=== PATIENT | male | born 1965 | race Caucasian/White ===

== ENCOUNTER 2018-12-24 13:27 | Observation (INO) ==
--- NOTE | 2018-12-24 13:32 | Emergency Department Note ---
Disposition Clinical Impression: Chest pain Qualifiers: Chest pain type: unspecified Qualified Code(s): R07.9 - Chest pain, unspecified Disposition: Admitted As Inpatient Time of Disposition: 16:00 General Adult HPI - General Stated complaint: Chest Pain Time Seen by Provider: 12/24/18 13:31 Nursing Notes Reviewed: Yes Vital Signs Reviewed: Yes - History of Present Illness HPI Narrative: 53-year-old male presented to emergency department concern for intermittent chest palpitations and tightness over the last 2 days. Patient denies any history of coronary artery disease, but does admit to having hypertension, being a smoker. Patient states that he has never felt this way before. He has had a clean stress test about 3 years ago. - Related Data Home Medications Medication Instructions Recorded Confirmed Amlodipine Besylate/Benazepril 1 each PO DAILY 11/10/18 11/10/18 [Lotrel 10-40 mg Capsule] Cyclobenzaprine HCl 10 mg PO DAILY PRN 11/10/18 11/10/18 Gabapentin [Neurontin] 400 mg PO Q8HR 11/10/18 11/10/18 Metoprolol Tartrate [Lopressor] 50 mg PO DAILY 11/10/18 11/10/18 Sulindac 200 mg PO BID PRN 11/10/18 11/10/18 glipiZIDE [Glipizide] 10 mg PO DAILY 11/10/18 11/10/18 Allergies Allergy/AdvReac Type Severity Reaction Status Date / Time No Known Allergies Allergy Verified 02/06/18 11:32 All systems ED: reviewed and negative except as stated. Review of Systems: As Per HPI Constitutional: Denies: fever Cardiovascular: Reports: chest pain, palpitations Respiratory: Denies: cough, dyspnea, sputum production Gastrointestinal: Denies: abdominal pain, nausea, vomiting Genitourinary: Denies: dysuria Musculoskeletal: Denies: back pain Past Medical History - Past Medical History Attestation: Yes The following information was validated with the patient. Medical history: Reports: hypertension, other Surgical history: Reports: cholecystectomy, orthopedic, other Psychiatric history: Reports: anxiety - Social History Smoking Status: Current every day smoker Smokeless Tobacco Status: No Alcohol use: Reports: occasionally Drug use: Reports: none Physical Exam - General Limitations: no limitations General appearance: alert, in no apparent distress - Head Head exam: normocephalic - Eye Eye exam: Present: EOMI - ENT ENT exam: mucous membranes moist - Neck Neck exam: Present: trachea midline - Chest Chest inspection: Present: symmetric chest wall rise - Respiratory Respiratory exam: Present: normal lung sounds bilaterally. Absent: respiratory distress, wheezes, accessory muscle use - Cardiovascular Cardiovascular exam: Present: regular rate, normal rhythm, normal heart sounds - Abdominal Exam Abdominal exam: Present: soft, Non-Tender. Absent: distention, guarding, rebound, rigidity - Extremities Exam Extremities exam: Present: normal capillary refill - Neurological Exam Neurological exam: Present: alert, oriented X3 - Psychiatric Psychiatric exam: Present: normal affect, normal mood - Skin Skin exam: Present: warm, dry, intact, normal color. Absent: rash Course Vital Signs Temperature 98.5 F 12/24/18 13:37 Pulse Rate 96 12/24/18 13:37 Respiratory Rate 20 12/24/18 13:37 Blood Pressure 147/86 12/24/18 13:37 O2 Sat by Pulse Oximetry 97 12/24/18 13:37 Temperature 98.5 F 12/24/18 13:37 Pulse Rate 103 12/24/18 14:55 Respiratory Rate 18 12/24/18 14:55 Blood Pressure 129/82 12/24/18 14:55 O2 Sat by Pulse Oximetry 93 12/24/18 14:55 Oxygen Delivery Oxygen Delivery Room Air Medical Decision Making - [facility] Narrative Medical decision making narrative: Did 53-year-old male presents emergency department with concern for intermittent chest comfortably last couple days. EKG reveals mild ST depressions in the inferior leads that were nonspecific. Patient has new cardiomegaly on chest x- ray. Heart score 4. Given nitroglycerin and aspirin here in the emergency department. Heart score of 4, patient agreed for admission. Hemodynamically stable at that time. Chest X-Ray 12/24/18 13:31 IMPRESSION: No acute findings D/ / Bethany Harris MD / Bethany Harris MD Interpreting Provider: Bethany Harris MD - Lab Data Result diagrams: 12/24/18 14:00 12/24/18 14:00 Lab Results 12/24/18 12/24/18 12/24/18 Range/Units 14:00 14:00 14:00 WBC 8.4 (4.3-11.1) K/mcL RBC 5.07 (4.19-5.50) M/mcL Hgb 16.2 (12.9-16.9) g/dL Hct 46.2 (37.5-50.1) % MCV 91.1 (83.0-100.0) fL MCH 32.0 (28.0-33.3) pg MCHC 35.1 (31.6-35.5) g/dL RDW 12.2 (11.5-14.5) % Plt Count 219 (140-400) K/mcL MPV 9.7 (9.4-12.4) fL Immature Gran % 1.0 (0-4) % Seg Neutrophils % 47.4 % Lymphocytes % 35.4 % Monocytes % 12.5 % Eosinophils % 2.7 % Basophils % 1.0 % Neutrophils # 4.0 (1.6-8.9) K/mcL Lymphocytes # 3.0 (0.6-4.6) K/mcL Monocytes # 1.1 (0.0-1.3) K/mcL Eosinophils # 0.2 (0.0-0.6) K/mcL Basophils # 0.1 (0.0-0.2) K/mcL Sodium 140 (136-145) mEq/L Potassium 4.1 (3.5-5.1) mEq/L Chloride 106 (98-107) mEq/L Carbon Dioxide 25 (23-29) mEq/L BUN 16 (6-20) mg/dL Creatinine 1.14 (0.70-1.30) mg/dL Est GFR ( Amer) > 60 (> 60) Est GFR (Non-Af Amer) > 60 (> 60) BUN/Creatinine Ratio 14 (6-26) Glucose 153 H (70-105) mg/dL Calculated Osmolality 294 (280-300) Calcium 9.0 (8.6-10.3) mg/dL Troponin I < 0.03 (< 0.04) ng/mL B-Natriuretic Peptide 26 (Less than 100) pg/mL - Radiology Data Radiology results reviewed: Yes I reviewed the patient's radiology results. - EKG Data EKG #1 EKG attestation: Yes I reviewed and interpreted this EKG. EKG results narrative: 13:39 Heart rate 96 bpm, SC interval 130 muscles, QRS duration 92 ms, QT 354 months seconds, normal axis. Sinus rhythm mild ST depressions noted on inferior leads Heart Score - Score History: Slightly Suspicious EKG: Non Specific repolarisation Disturbance Age: 45-65 Risk Factors: Equal/Greater than 3 risk factor or history of atherosclerotic disease Troponin: Less than normal limit HEART Score Total: 4
[2018-12-24] MEDS ORDERED: Aspirin 81 MG TAB.CHEW PO STA (13:53)
[2018-12-24 14:16] LABS: Basophils # 0.1 K/mcL (0.0-0.2); Eosinophils # 0.2 K/mcL (0.0-0.6); Eosinophils % 2.7 %; Hematocrit 46.2 % (37.5-50.1); Hemoglobin 16.2 g/dL (12.9-16.9); Lymphocytes % 35.4 %; Mean Corpuscular HGB Conc 35.1 g/dL (31.6-35.5); Mean Corpuscular Volume 91.1 fL (83.0-100.0); Mean Platelet Volume 9.7 fL (9.4-12.4); Monocytes # 1.1 K/mcL (0.0-1.3); Monocytes % 12.5 %; Platelet Count 219 K/mcL (140-400); Red Blood Count 5.07 M/mcL (4.19-5.50); Red Cell Distribution Width 12.2 % (11.5-14.5); Segmented Neutrophils % 47.4 %; White Blood Count 8.4 K/mcL (4.3-11.1)
[2018-12-24 14:36] LABS: BUN/Creatinine Ratio 14 (6-26); Blood Urea Nitrogen 16 mg/dL (6-20); Carbon Dioxide 25 mEq/L (23-29); Chloride 106 mEq/L (98-107); Glucose 153 mg/dL (70-105); Osmolality,Calculated 294 (280-300); Potassium 4.1 mEq/L (3.5-5.1); Sodium 140 mEq/L (136-145); eGFR For African Americans > 60 (> 60); eGFR For Non-African Americans > 60 (> 60)
[2018-12-24 14:37] LABS: Troponin I < 0.03 ng/mL (< 0.04)
[2018-12-24] MEDS: Nitroglycerin 0.4 MG TAB.SUBL SL PRN ×2 (14:47→14:54)
[2018-12-24] MEDS ORDERED: Aspirin 81 MG TAB.CHEW ONE (14:51)
--- NOTE | 2018-12-24 15:12 | Emergency Department Note ---
Disposition Clinical Impression: Chest pain Qualifiers: Chest pain type: unspecified Qualified Code(s): R07.9 - Chest pain, unspecified Disposition: Admitted As Inpatient Referrals: NONE,PCP [Primary Care Provider] - Forms: ED Satisfaction Letter Time of Disposition: 15:12 General Adult HPI - General Chief complaint: ED Chest Pain Stated complaint: Chest Pain Time Seen by Provider: 12/24/18 13:31 Source: patient Limitations: no limitations - History of Present Illness Pain Scale: 7 - Related Data Home Medications Medication Instructions Recorded Confirmed Amlodipine Besylate/Benazepril 1 each PO DAILY 11/10/18 11/10/18 [Lotrel 10-40 mg Capsule] Cyclobenzaprine HCl 10 mg PO DAILY PRN 11/10/18 11/10/18 Gabapentin [Neurontin] 400 mg PO Q8HR 11/10/18 11/10/18 Metoprolol Tartrate [Lopressor] 50 mg PO DAILY 11/10/18 11/10/18 Sulindac 200 mg PO BID PRN 11/10/18 11/10/18 glipiZIDE [Glipizide] 10 mg PO DAILY 11/10/18 11/10/18 Allergies Allergy/AdvReac Type Severity Reaction Status Date / Time No Known Allergies Allergy Verified 02/06/18 11:32 Constitutional: Denies: fever Cardiovascular: Reports: chest pain, palpitations Respiratory: Denies: cough, dyspnea, sputum production Gastrointestinal: Denies: abdominal pain, nausea, vomiting Genitourinary: Denies: dysuria Musculoskeletal: Denies: back pain Past Medical History - Past Medical History Medical history: Reports: diabetes, hypertension, other Surgical history: Reports: cholecystectomy, orthopedic, other Psychiatric history: Reports: anxiety, depression, PTSD - Social History Smoking Status: Former smoker Smokeless Tobacco Status: No Alcohol use: Reports: occasionally Drug use: Reports: none Physical Exam - General Limitations: no limitations General appearance: alert, in no apparent distress Course Vital Signs Temperature 98.5 F 12/24/18 13:37 Pulse Rate 96 12/24/18 13:37 Respiratory Rate 20 12/24/18 13:37 Blood Pressure 147/86 12/24/18 13:37 O2 Sat by Pulse Oximetry 97 12/24/18 13:37 Temperature 98.5 F 12/24/18 13:37 Pulse Rate 103 07/28/19 14:55 Respiratory Rate 18 12/24/18 14:55 Blood Pressure 129/82 12/24/18 14:55 O2 Sat by Pulse Oximetry 93 12/24/18 14:55 Oxygen Delivery Oxygen Delivery Room Air Medical Decision Making - Lab Data Result diagrams: 12/24/18 14:00 12/24/18 14:00 Lab Results 12/24/18 12/24/18 12/24/18 Range/Units 14:00 14:00 14:00 WBC 8.4 (4.3-11.1) K/mcL RBC 5.07 (4.19-5.50) M/mcL Hgb 16.2 (12.9-16.9) g/dL Hct 46.2 (37.5-50.1) % MCV 91.1 (83.0-100.0) fL MCH 32.0 (28.0-33.3) pg MCHC 35.1 (31.6-35.5) g/dL RDW 12.2 (11.5-14.5) % Plt Count 219 (140-400) K/mcL MPV 9.7 (9.4-12.4) fL Immature Gran % 1.0 (0-4) % Seg Neutrophils % 47.4 % Lymphocytes % 35.4 % Monocytes % 12.5 % Eosinophils % 2.7 % Basophils % 1.0 % Neutrophils # 4.0 (1.6-8.9) K/mcL Lymphocytes # 3.0 (0.6-4.6) K/mcL Monocytes # 1.1 (0.0-1.3) K/mcL Eosinophils # 0.2 (0.0-0.6) K/mcL Basophils # 0.1 (0.0-0.2) K/mcL Sodium 140 (136-145) mEq/L Potassium 4.1 (3.5-5.1) mEq/L Chloride 106 (98-107) mEq/L Carbon Dioxide 25 (23-29) mEq/L BUN 16 (6-20) mg/dL Creatinine 1.14 (0.70-1.30) mg/dL Est GFR ( Amer) > 60 (> 60) Est GFR (Non-Af Amer) > 60 (> 60) BUN/Creatinine Ratio 14 (6-26) Glucose 153 H (70-105) mg/dL Calculated Osmolality 294 (280-300) Calcium 9.0 (8.6-10.3) mg/dL Troponin I < 0.03 (< 0.04) ng/mL B-Natriuretic Peptide 26 (Less than 100) pg/mL Attestation Statement - Attestation Attestation: I reviewed the residents documentation and agree with the residents assessment and plan of care. I have personally had face to face time with the patient. (Brief History, Brief Exam, and MDM) I personally supervised and was present for the seymour/critical portions of the following procedures completed by the resident: EKG 53 year old male presents to the ED with complaints of chest pain and has a heart score of 4. PAtinet has a negstive troponin and mild nonspcific ST-T wave flattening. We will treat with ASA and nitro and admit to medicine.
[2018-12-24] MEDS ORDERED: traMADol 50 MG TABLET PO PRN (17:24)
[2018-12-24] MEDS ORDERED: Mag Hydrox/Al Hydrox/Simeth 30 ML UDC PO PRN (17:24)
[2018-12-24] MEDS ORDERED: *HR* Promethazine 25 MG/ML VIAL IVP PRN (17:24)
[2018-12-24] MEDS ORDERED: Acetaminophen 325 MG TABLET PO PRN (17:24)
[2018-12-24] MEDS ORDERED: MOM Conc 10 ML UD.LIQ PO PRN (17:24)
[2018-12-24] MEDS ORDERED: Naloxone 0.4 MG/ML INJ IVP PRN (17:24)
[2018-12-24] MEDS ORDERED: Ondansetron 4 MG/2 ML VIAL IVP PRN (17:24)
[2018-12-24] MEDS ORDERED: Dextrose Gel 15 GM/37.5 ML TUBE PO PRN ×2 (17:26)
[2018-12-24] MEDS ORDERED: D5% in Water 1,000 ML IVC PRN (17:26)
[2018-12-24] MEDS ORDERED: *HR* Dextrose 50 % in Water (Syg) 50 ML SYRINGE IVP PRN (17:26)
--- NOTE | 2018-12-24 17:30 | Internal Med History&Physical ---
Date of Encounter: 12/24/18 Time of Encounter: 17:28 Internal Medicine - H&P: HPI Admitted From: Home Plans for Post Hospital Care: Home History of present illness: Mr. Hart is a 53 year old male presented to emergency department concern for intermittent chest palpitations and tightness over the last 2 days. Patient denies any history of coronary artery disease, but does admit to having hypertension, being a smoker. Patient states that he has never felt this way before. He has had a clean stress test about 3 years ago. In the ED, patient vital signs were stable, first set of troponin was negative, EKG has no acute ST-T change. He will be admitted for further evaluation. CODE STATUS will be full code. Past Med Surg Social Fam HX - Past Medical History Medical history: diabetes, hypertension, other Additional medical history: neoplasm of uncertain behavior. obstructive sleep apnea. dyslipidemia. chronic neck pain. chronic back pain. post-laminectomy syndrome, lumbar. pre-diabetic Psychiatric history: anxiety, depression, PTSD - Past Surgical History Surgical History: cholecystectomy, orthopedic, other Additional surgical history: thoracic and lumbar microdiscectomy. neck surgery cervical disectomy - Social History Smoking Status: Former smoker Smokeless Tobacco Status: No Alcohol use: occasionally Drug use: none Internal Medicine - H&P: Meds Amlodipine Besylate/Benazepril [Lotrel 10-40 mg Capsule] 1 each PO DAILY 11/10/18 [History] Cyclobenzaprine HCl 10 mg PO DAILY PRN 11/10/18 [History] Gabapentin [Neurontin] 400 mg PO Q8HR 11/10/18 [History] Metoprolol Tartrate [Lopressor] 50 mg PO DAILY 11/10/18 [History] Sulindac 200 mg PO BID PRN 11/10/18 [History] glipiZIDE [Glipizide] 10 mg PO DAILY 11/10/18 [History] Allergy/AdvReac Type Severity Reaction Status Date / Time No Known Allergies Allergy Verified 02/06/18 11:32 All Systems PM: A 10-system review of systems was performed and is negative for pertinent findings except as documented above in the HPI. Review of systems: REVIEW OF SYSTEMS: CONSTITUTIONAL: No weight loss, fever, chills, weakness or fatigue. HEENT: Eyes: No visual loss, blurred vision, double vision or yellow sclerae. Ears, Nose, Throat: No hearing loss, sneezing, congestion, runny nose or sore throat. SKIN: No rash or itching. CARDIOVASCULAR: No chest pain, chest pressure or chest discomfort. No palpitations or edema. RESPIRATORY: No shortness of breath, cough or sputum. GASTROINTESTINAL: No anorexia, nausea, vomiting or diarrhea. No abdominal pain or blood. GENITOURINARY: No dysuria, urgency, or frequency. NEUROLOGICAL: No headache, dizziness, syncope, paralysis, ataxia, numbness or tingling in the extremities. No change in bowel or bladder control. MUSCULOSKELETAL: No muscle, back pain, joint pain or stiffness. HEMATOLOGIC: No anemia, bleeding or bruising. LYMPHATICS: No enlarged nodes. No history of splenectomy. PSYCHIATRIC: No history of depression or anxiety. ENDOCRINOLOGIC: No reports of sweating, cold or heat intolerance. No polyuria or polydipsia. - Constitutional Vitals: Temp Pulse Resp BP Pulse Ox 98.5 F 89 18 120/80 96 12/24/18 13:37 12/24/18 16:32 12/24/18 16:32 12/24/18 16:32 12/24/18 16:32 General appearance: Present: A&O X 3 Exam: PHYSICAL EXAMINATION: GENERAL APPEARANCE: The patient is alert, oriented and in no acute distress. HEENT: Head is normocephalic. The sinuses are nontender. Pupils are equal and reactive. The nares are patent. Oropharynx clear without lesions. NECK: Supple without lymphadenopathy. HEART: Regular rate and rhythm. LUNGS: No crackles or wheezes are heard. ABDOMEN: Soft, nontender, nondistended with good bowel sounds heard. Inguinal area is normal. EXTREMITIES: Without cyanosis, clubbing or edema. NEUROLOGICAL: Gross nonfocal. SKIN: Warm and dry without any rash. Internal Med - H&P Results - Labs CBC & Chem 7: 12/24/18 14:00 12/24/18 14:00 Labs: Short CBC 12/24/18 Range/Units 14:00 WBC 8.4 (4.3-11.1) K/mcL Hgb 16.2 (12.9-16.9) g/dL Hct 46.2 (37.5-50.1) % Plt Count 219 (140-400) K/mcL Neutrophils # 4.0 (1.6-8.9) K/mcL BMP 12/24/18 14:00 Sodium 140 Potassium 4.1 Chloride 106 Carbon Dioxide 25 BUN 16 Creatinine 1.14 Glucose 153 H Calcium 9.0 Cardiac Enzymes 12/24/18 Range/Units 14:00 Troponin I < 0.03 (< 0.04) ng/mL - Impressions ITS Impressions Chest X-Ray 12/24/18 13:31 IMPRESSION: No acute findings D/ / Bethany Harris MD / Bethany Harris MD Interpreting Provider: Bethany Harris MD - Assessment and Plan (1) Chest pain Current Visit: Yes Status: Acute Assessment and plan: Continue cycle troponin, telemetry monitoring, EKG as needed. Smoke cessation discussed with patient. A1c and lipid panel in the morning. Echocardiogram and stress test ordered. Qualifiers: Chest pain type: unspecified Qualified Code(s): R07.9 - Chest pain, unspecified (2) Diabetes mellitus Current Visit: No Status: Chronic Assessment and plan: Repeat A1c in the morning, hold oral agents, started patient on insulin sliding scale. Qualifiers: Diabetes mellitus type: type 2 Diabetes mellitus prison insulin use: without knot tying operator use Diabetes mellitus complication status: without complication Qualified Code(s): E11.9 - Type 2 diabetes mellitus without complications (3) Hypertension Current Visit: No Status: Chronic Assessment and plan: BP controlled, continue home medication. Qualifiers: Hypertension type: essential hypertension Qualified Code(s): I10 - Essential (primary) hypertension (4) DVT prophylaxis Current Visit: Yes Status: Acute Assessment and plan: Heparin subcutaneous. - Time Spent With Patient Total time spent is greater than 50% in coordination of care (as documented) at patient's floor/unit and/or counseling patient: Greater than 35 minutes
[2018-12-24] MEDS: *HR* Heparin 5,000 UNIT/ML VIAL SQ SCH (19:30)
[2018-12-24] MEDS: Insulin LISPRO 300 UNITS/3 ML VIAL SQ SCH (20:42)
[2018-12-25] MEDS: *HR* Heparin 5,000 UNIT/ML VIAL SQ SCH ×2 (05:22→19:43)
[2018-12-25] MEDS ORDERED: Regadenoson 0.4 MG/5 ML SYRINGE IVP ONE (07:19)
[2018-12-25 07:27] LABS: Basophils # 0.1 K/mcL (0.0-0.2); Basophils % 1.1 %; Eosinophils # 0.3 K/mcL (0.0-0.6); Eosinophils % 2.7 %; Hematocrit 49.2 % (37.5-50.1); Immature Granulocytes % 1.2 % (0-4); Lymphocytes # 3.1 K/mcL (0.6-4.6); Lymphocytes % 33.7 %; Mean Corpuscular HGB Conc 34.6 g/dL (31.6-35.5); Mean Corpuscular Hemoglobin 31.4 pg (28.0-33.3); Mean Corpuscular Volume 90.8 fL (83.0-100.0); Monocytes # 1.1 K/mcL (0.0-1.3); Monocytes % 11.9 %; Neutrophils # 4.6 K/mcL (1.6-8.9); Platelet Count 225 K/mcL (140-400); Red Blood Count 5.42 M/mcL (4.19-5.50); Red Cell Distribution Width 12.1 % (11.5-14.5); Segmented Neutrophils % 49.4 %; White Blood Count 9.3 K/mcL (4.3-11.1)
[2018-12-25 07:48] LABS: Alanine Aminotransferase 29 Units/L (7-52); Albumin/Globulin Ratio 1.3 (1.1-2.2); Alkaline Phosphatase 81 Units/L (34-104); Aspartate Amino Transferase 17 Units/L (13-39); BUN/Creatinine Ratio 16 (6-26); Bilirubin,Total 0.7 mg/dL (0.3-1.0); Blood Urea Nitrogen 14 mg/dL (6-20); Calcium 9.1 mg/dL (8.6-10.3); Carbon Dioxide 26 mEq/L (23-29); Chloride 102 mEq/L (98-107); Chol/HDL Ratio 4.4 (0-4.9); Cholesterol 192 mg/dL (< 200); Glucose 161 mg/dL (70-105); HDL Cholesterol 44 mg/dL (40-59); LDL Cholesterol,Calculated 98 mg/dL (0-99); Magnesium 2.1 mg/dL (1.6-2.6); Osmolality,Calculated 292 (280-300); Phosphorous 2.9 mg/dL (2.7-4.5); Potassium 3.6 mEq/L (3.5-5.1); Sodium 139 mEq/L (136-145); Triglycerides 248 mg/dL (< 150); eGFR For African Americans > 60 (> 60); eGFR For Non-African Americans > 60 (> 60)
[2018-12-25 08:00] LABS: Estimated Average Glucose 160 mg/dl
[2018-12-25] MEDS: Insulin LISPRO 300 UNITS/3 ML VIAL SQ SCH ×4 (09:19→20:31)
--- NOTE | 2018-12-25 12:35 | Discharge Summary ---
- NOTES TO OUTPATIENT PROVIDER Notes to Outpatient Provider: f/u with PCP within 2 weeks. Date of Encounter: 12/25/18 Time of Encounter: 12:32 - Discharge Diagnosis (1) Chest pain Priority: Primary Status: Acute Qualifiers: Chest pain type: unspecified Qualified Code(s): R07.9 - Chest pain, unspecified (2) Diabetes mellitus Priority: Secondary Status: Chronic Qualifiers: Diabetes mellitus type: type 2 Diabetes mellitus truss maker insulin use: without truss maker use Diabetes mellitus complication status: without complication Qualified Code(s): E11.9 - Type 2 diabetes mellitus without complications (3) Hypertension Priority: Secondary Status: Chronic Qualifiers: Hypertension type: essential hypertension Qualified Code(s): I10 - Essential (primary) hypertension (4) DVT prophylaxis Priority: Primary Status: Acute Hospital course: Mr. Hart is a 53 year old male presented to emergency department concern for intermittent chest palpitations and tightness over the last 2 days. Patient denies any history of coronary artery disease, but does admit to having hypertension, being a smoker. Patient states that he has never felt this way before. He has had a clean stress test about 3 years ago. Serial troponin was negative, ECG has no acute st-t changes, stress test and echo were unremarkable. He is discharged home and f/u with PCP within 2 weeks. Discharge discussed with: patient Time spent discussing smoking cessation with patient: more than 10 minutes - Time Spent with Patient Total time spent providing and/or coordinating discharge services: Time spent: Greater than 30 minutes - Discharge Medications Prescriptions: New amLODIPine [Norvasc] 10 mg PO HS #30 tablet Lisinopril [Zestril] 40 mg PO HS #30 tablet Continued Metoprolol Tartrate [Lopressor] 50 mg PO HS glipiZIDE [Glipizide] 10 mg PO HS Amlodipine Besylate/Benazepril [Lotrel 10-40 mg Capsule] 1 each PO HS Gabapentin [Neurontin] 400 mg PO Q8HR Cyclobenzaprine HCl 10 mg PO DAILY PRN PRN Reason: Muscle Spasm Sulindac 200 mg PO BID PRN PRN Reason: Pain Home Medications: Amlodipine Besylate/Benazepril [Lotrel 10-40 mg Capsule] 1 each PO HS 11/10/18 [History] Cyclobenzaprine HCl 10 mg PO DAILY PRN 11/10/18 [History] Gabapentin [Neurontin] 400 mg PO Q8HR 11/10/18 [History] Metoprolol Tartrate [Lopressor] 50 mg PO HS 11/10/18 [History] Sulindac 200 mg PO BID PRN 11/10/18 [History] glipiZIDE [Glipizide] 10 mg PO HS 11/10/18 [History] Lisinopril [Zestril] 40 mg PO HS #30 tablet 12/25/18 [Rx] amLODIPine [Norvasc] 10 mg PO HS #30 tablet 12/25/18 [Rx] Allergies/Adverse Reactions: Allergy/AdvReac Type Severity Reaction Status Date / Time No Known Allergies Allergy Verified 02/06/18 11:32 Date of admission: 12/24/18 16:06 Primary care physician: PCP NONE Consults: 12/24/18 18:25 Consult to Regional Marketing Director [CONS] Routine Reason for SW Consult: medications, financial Anticipated date of discharge: 12/25/18 - Constitutional Vitals: Temp Pulse Resp BP Pulse Ox 98.0 F 107 16 178/85 96 12/25/18 11:56 12/25/18 11:56 12/25/18 11:56 12/25/18 11:56 12/25/18 11:56 General appearance: Present: A&O X 3 Exam: PHYSICAL EXAMINATION: GENERAL APPEARANCE: The patient is alert, oriented and in no acute distress. HEENT: Head is normocephalic. The sinuses are nontender. Pupils are equal and reactive. The nares are patent. Oropharynx clear without lesions. NECK: Supple without lymphadenopathy. HEART: Regular rate and rhythm. LUNGS: No crackles or wheezes are heard. ABDOMEN: Soft, nontender, nondistended with good bowel sounds heard. Inguinal area is normal. EXTREMITIES: Without cyanosis, clubbing or edema. NEUROLOGICAL: Gross nonfocal. SKIN: Warm and dry without any rash. - Patient Status Disposition: Home, Self-Care Condition: Fair Functional capacity at discharge: independent ambulation Overall status at discharge: patient is progressing back to baseline - Discharge Instructions Follow Up With: Saul Hernadez DO [Partnered Physician] - 01/23/19 8:20 am - Diet and Activity Activity: increase activity as tolerated Diet: diabetic diet, low fat, low cholesterol, low salt diet
[2018-12-25] MEDS ORDERED: Isovue-370 500 ML BOTTLE IVP ONE (13:28)
--- NOTE | 2018-12-25 13:38 | Internal Med Progress Note ---
Hospitalist Progress Note - Encounter Date of Encounter: 12/25/18 Time of Encounter: 13:34 - Subjective Interval History: Mr. Hart is a 53 year old male presented to emergency department concern for intermittent chest palpitations and tightness over the last 2 days. Patient denies any history of coronary artery disease, but does admit to having hyperten aung, being a smoker. Patient states that he has never felt this way before. He has had a clean stress test about 3 years ago. Pt reported that chest pain has resolved. But had generalized weakness and constantly feeling tired. Also reported recent weight gain and morning facial swelling. Reported family stress and related stress. Denies fever, chills, or night sweats. - Exam Vitals: Temp Pulse Resp BP Pulse Ox 98.0 F 107 16 178/85 96 12/25/18 11:56 12/25/18 11:56 12/25/18 11:56 12/25/18 11:56 12/25/18 11:56 Exam: PHYSICAL EXAMINATION: GENERAL APPEARANCE: The patient is alert, oriented and in no acute distress. HEENT: Head is normocephalic. The sinuses are nontender. Pupils are equal and reactive. The nares are patent. Oropharynx clear without lesions. NECK: Supple without lymphadenopathy. HEART: Regular rate and rhythm. LUNGS: No crackles or wheezes are heard. ABDOMEN: Soft, nontender, nondistended with good bowel sounds heard. Inguinal area is normal. EXTREMITIES: Without cyanosis, clubbing or edema. NEUROLOGICAL: Gross nonfocal. SKIN: Warm and dry without any rash. - Assessment and Plan (1) Chest pain Current Visit: Yes Status: Acute Assessment and Plan: Resolved currently. Serial troponin was negative. EKG has no acute ST-T change. Echocardiogram and stress test were both unremarkable. (2) Diabetes mellitus Current Visit: No Status: Chronic Assessment and Plan: A1c 7.2, continue insulin sliding scale. (3) Hypertension Current Visit: No Status: Chronic Assessment and Plan: She reported a poorly controlled her blood pressure recently. Also reported g eneralized weakness and tiredness with facial swelling. Metoprolol was discontinued for concerning side effect, lisinopril due to started as well as Norvasc, we will add HCTZ. Patient reported a recent unintentional weight gain, will check random cortisol level and a 24-hour urine cortisol. CT chest/abdomen/pelvis for general screening. Continue monitoring BP. (4) DVT prophylaxis Current Visit: Yes Status: Acute Assessment and Plan: Heparin subcutaneous. DVT Prophylaxis: Heparin subcutaneous. - Time Spent with Patient Total time spent is greater than 50% in coordination of care (as documented) at patient's floor/unit and/or counseling patient: Greater than 35 minutes Plan of Care Discussed with: patient Internal Medicine: Result - Labs CBC & Chem 7: 12/25/18 06:05 12/25/18 06:05 Labs: Short CBC 12/24/18 12/25/18 Range/Units 14:00 06:05 WBC 8.4 9.3 (4.3-11.1) K/mcL Hgb 16.2 17.0 H (12.9-16.9) g/dL Hct 46.2 49.2 (37.5-50.1) % Plt Count 219 225 (140-400) K/mcL Neutrophils # 4.0 4.6 (1.6-8.9) K/mcL BMP 12/24/18 12/25/18 14:00 06:05 Sodium 140 139 Potassium 4.1 3.6 Chloride 106 102 Carbon Dioxide 25 26 BUN 16 14 Creatinine 1.14 0.87 Glucose 153 H 161 H Calcium 9.0 9.1 Cardiac Enzymes 12/24/18 12/24/18 Range/Units 14:00 20:54 Troponin I < 0.03 < 0.03 (< 0.04) ng/mL Liver Function 12/25/18 Range/Units 06:05 Total Bilirubin 0.7 (0.3-1.0) mg/dL AST 17 (13-39) Units/L ALT 29 (7-52) Units/L Alkaline Phosphatase 81 (34-104) Units/L Albumin 4.0 (3.5-5.7) g/dL - Impressions Impressions Chest X-Ray 12/24/18 13:31 IMPRESSION: No acute findings D/ / Bethany Harris MD / Bethany Harris MD Interpreting Provider: Bethany Harris MD Echocardiogram 12/25/18 17:27 Impressions: LVEF 65%. Mild concentric left ventricular hypertrophy. Mild left ventricular diastolic dysfunction. Normal right ventricular structure and function. No significant valvular dysfunction. No evidence of pulmonary hypertension. Left Ventricular Wall Motion: Rest Echo Findings All wall segments showed normal motion. Findings: Study Quality * Technically sub-optimal due to poor echocardiographic windows. ECG Findings * Normal sinus rhythm. Left Ventricle * LVEF 65%. * Normal LV chamber size and systolic function. * Mild concentric left ventricular hypertrophy. * Mild left ventricular diastolic dysfunction. Right Ventricle * Normal right ventricular structure and function. Left Atrium * Normal left atrial size. Right Atrium * Normal right atrial size. Interatrial Septum * Interatrial septum not well evaluated. Aortic Valve * Aortic valve not well visualized. * No aortic stenosis. * No aortic regurgitation. Mitral Valve * Normal mitral valve structure. * No mitral stenosis. * Trace mitral regurgitation. Tricuspid Valve * Normal tricuspid valve structure. * No tricuspid stenosis. * Trace tricuspid regurgitation. * Unable to estimate RVSP due to lack of TR jet. * Estimated RA pressure is 3 mmHg. * No evidence of pulmonary hypertension. Pulmonic Valve * Pulmonic valve is not well visualized. * No pulmonic stenosis. * No pulmonic regurgitation. Aorta * Normally sized aortic root. Pericardium * The pericardium appears normal. IVC * The IVC is not dilated. * > 50% respiratory change Device lead * Device lead not well visualized. Consult Discharge Plan - Plan Additional Instructions: An appointment has been set up for 4pm today at [facility] for mask fitting for new CPAP mask. 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
--- NOTE | 2018-12-25 16:26 | Electrocardiograph Report ---
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
[2018-12-25] MEDS: hydroCHLOROthiazide 25 MG TABLET PO SCH (17:11)
[2018-12-25] MEDS ORDERED: amLODIPine 5 MG TABLET PO SCH (21:00)
[2018-12-25] MEDS ORDERED: NON-FORMULARY MEDICATION 1 EACH EACH (Amlodipine Besylate/Benazepril [Lotrel 10-40 Mg Caps PO SCH (21:00)
[2018-12-25] MEDS ORDERED: Lisinopril 20 MG TABLET PO SCH (21:00)
[2018-12-25] MEDS ORDERED: GlipiZIDE 5 MG TABLET PO SCH (21:00)
[2018-12-26] MEDS: *HR* Heparin 5,000 UNIT/ML VIAL SQ SCH (05:34)
[2018-12-26] MEDS: hydroCHLOROthiazide 25 MG TABLET PO SCH (08:01)
[2018-12-26] MEDS: Insulin LISPRO 300 UNITS/3 ML VIAL SQ SCH ×2 (10:50→11:57)
[2018-12-26] MEDS ORDERED: Acetaminophen 325 MG TABLET PO PRN (10:53)
[2018-12-26 11:54] VITALS: BP 129/78
[2018-12-30 11:48] LABS: Urine Collection Volume 1660 mL; Urine Creatinine mg/d 1577 mg/d (800-2100)
== END 2018-12-26 15:15 | disposition home or self-care (01) ==
LOC: EMEROOARM 13:27 → 3BNU 13:27
PROVIDERS: ADMIT Internal Medicine Nephrology; ATTEND Internal Medicine Nephrology

== ENCOUNTER 2020-11-18 18:15 | Inpatient (IN) ==
[2020-11-18] MEDS ORDERED: Nitroglycerin 0.4 MG TAB.SUBL SL ONE (18:30)
[2020-11-18] MEDS ORDERED: *HR* Heparin 5,000 UNIT/ML VIAL IVP PRN ×2 (18:30)
[2020-11-18] MEDS ORDERED: Heparin 25,000UNIT/250ML 1/2NS 25,000 UNIT/250 ML IV.SOLN IVC SCH (18:30)
[2020-11-18] MEDS ORDERED: 0.9 % Sodium Chloride 1,000 ML IVC ONE (18:30)
[2020-11-18] MEDS ORDERED: *HR* Heparin 5,000 UNIT/ML VIAL IVP ONE (18:30)
[2020-11-18 18:41] LABS: Hemoglobin 19.1 g/dL (12.9-16.9); Mean Corpuscular HGB Conc 34.1 g/dL (31.6-35.5); Mean Corpuscular Hemoglobin 32.3 pg (28.0-33.3); Mean Corpuscular Volume 94.8 fL (83.0-100.0); Mean Platelet Volume 9.2 fL (9.4-12.4); Platelet Count 238 K/mcL (140-400); Red Blood Count 5.91 M/mcL (4.19-5.50); White Blood Count 11.8 K/mcL (4.3-11.1)
[2020-11-18 18:49] LABS: Heparin anti-factor XA UFH < 0.04 IU/mL (0.30-0.70)
[2020-11-18 18:50] LABS: Prothrombin Time 11.5 Seconds (9.4-12.1)
[2020-11-18] MEDS ORDERED: *HR* Ticagrelor 90 MG TABLET PO ONE (18:50)
[2020-11-18] MEDS ORDERED: *HR* Ticagrelor 90 MG TABLET ONE (18:50)
[2020-11-18] MEDS ORDERED: 0.9 % Sodium Chloride 2,000 ML ONE (18:51)
[2020-11-18] MEDS ORDERED: Heparin 1,000 UNITS/500 mL 500 ML ONE (18:51)
[2020-11-18] MEDS ORDERED: *HR* Heparin 10,000 UNIT/10 ML VIAL ONE (18:51)
[2020-11-18] MEDS ORDERED: *HR* Midazolam HCl 2 MG/2 ML VIAL ONE ×2 (18:51→19:34)
[2020-11-18] MEDS ORDERED: *HR* FentaNYL (PF) 100 MCG/2 ML VIAL ONE ×2 (18:51→19:32)
[2020-11-18] MEDS ORDERED: ISOVUE-370 200 ML INFUS..BTL ONE ×2 (18:51→19:35)
[2020-11-18] MEDS ORDERED: Nitroglycerin 1,000 MCG/5 ML VIAL IV ONE (18:52)
[2020-11-18] MEDS ORDERED: Ondansetron 4 MG/2 ML VIAL IVP ONE (19:05)
[2020-11-18] MEDS ORDERED: Morphine Sulfate 2 MG/ML SYRINGE IVP ONE (19:05)
[2020-11-18 19:25] LABS: BUN/Creatinine Ratio 18 (6-26); Blood Urea Nitrogen 17 mg/dL (6-20); Calcium 9.5 mg/dL (8.6-10.3); Carbon Dioxide 29 mEq/L (23-29); Chloride 101 mEq/L (98-107); Glucose 206 mg/dL (70-105); Osmolality,Calculated 292 (280-300); Potassium 4.4 mEq/L (3.5-5.1); Sodium 137 mEq/L (136-145); Troponin I < 0.03 ng/mL (< 0.04); eGFR For African Americans > 60 (> 60); eGFR For Non-African Americans > 60 (> 60)
[2020-11-18] MEDS ORDERED: Tirofiban 12.5 MG/250ML 12.5 MG/250 ML BAG ONE (19:26)
[2020-11-18] MEDS ORDERED: Protamine Sulfate 50 MG/5 ML VIAL IVP ONE (19:53)
[2020-11-18] MEDS ORDERED: Perflutren Lipid Microsphere 1.3 ML in 0.9 % Sodium Chloride 8.7 ML IVP PRN (20:41)
[2020-11-18] MEDS ORDERED: Tirofiban 12.5 MG/250ML 12.5 MG/250 ML BAG IVC SCH (20:45)
[2020-11-18] MEDS: *HR* Ticagrelor 90 MG TABLET PO SCH (21:36)
[2020-11-19 06:18] LABS: Basophils # 0.1 K/mcL (0.0-0.2); Basophils % 1.1 %; Eosinophils # 0.1 K/mcL (0.0-0.6); Eosinophils % 1.1 %; Hematocrit 51.1 % (37.5-50.1); Hemoglobin 17.6 g/dL (12.9-16.9); Immature Granulocytes % 1.4 % (0-4); Lymphocytes # 2.9 K/mcL (0.6-4.6); Lymphocytes % 26.1 %; Mean Corpuscular HGB Conc 34.4 g/dL (31.6-35.5); Mean Corpuscular Hemoglobin 32.1 pg (28.0-33.3); Mean Corpuscular Volume 93.2 fL (83.0-100.0); Mean Platelet Volume 9.5 fL (9.4-12.4); Monocytes # 1.4 K/mcL (0.0-1.3); Monocytes % 12.8 %; Neutrophils # 6.4 K/mcL (1.6-8.9); Platelet Count 221 K/mcL (140-400); Red Blood Count 5.48 M/mcL (4.19-5.50); Red Cell Distribution Width 12.9 % (11.5-14.5); Segmented Neutrophils % 57.5 %; White Blood Count 11.1 K/mcL (4.3-11.1)
[2020-11-19 06:42] LABS: BUN/Creatinine Ratio 22 (6-26); Blood Urea Nitrogen 16 mg/dL (6-20); Calcium 8.8 mg/dL (8.6-10.3); Carbon Dioxide 23 mEq/L (23-29); Chloride 105 mEq/L (98-107); Glucose 198 mg/dL (70-105); Osmolality,Calculated 291 (280-300); Potassium 3.6 mEq/L (3.5-5.1); Sodium 137 mEq/L (136-145); eGFR For African Americans > 60 (> 60); eGFR For Non-African Americans > 60 (> 60)
[2020-11-19] MEDS: *HR* Ticagrelor 90 MG TABLET PO SCH ×2 (07:47→22:05)
[2020-11-19] MEDS ORDERED: Aspirin 81 MG TAB.CHEW PO SCH (09:00)
[2020-11-19] MEDS ORDERED: amLODIPine 5 MG TABLET PO SCH (10:45)
[2020-11-19] MEDS ORDERED: *HR* Pioglitazone 30 MG TABLET PO SCH (10:45)
[2020-11-19] MEDS ORDERED: lisinopriL 20 MG TABLET PO SCH (10:48)
[2020-11-19] MEDS ORDERED: GlipiZIDE 5 MG TABLET PO SCH (17:00)
[2020-11-19] MEDS: GlipiZIDE 5 MG TABLET PO SCH (17:36)
[2020-11-20 07:10] VITALS: BP 146/99
[2020-11-20] MEDS ORDERED: amLODIPine 5 MG TABLET PO SCH (09:00)
[2020-11-20] MEDS ORDERED: lisinopriL 20 MG TABLET PO SCH (09:00)
[2020-11-20] MEDS ORDERED: *HR* Pioglitazone 30 MG TABLET PO SCH (09:00)
[2020-11-20] MEDS ORDERED: Aspirin 81 MG TAB.CHEW PO SCH (09:00)
[2020-11-20] MEDS: GlipiZIDE 5 MG TABLET PO SCH (09:15)
[2020-11-20] MEDS: *HR* Ticagrelor 90 MG TABLET PO SCH (09:17)
[2020-11-20 12:16] LABS: Basophils # 0.1 K/mcL (0.0-0.2); Basophils % 0.8 %; Eosinophils # 0.1 K/mcL (0.0-0.6); Eosinophils % 0.9 %; Hematocrit 55.3 % (37.5-50.1); Hemoglobin 18.7 g/dL (12.9-16.9); Immature Granulocytes % 1.7 % (0-4); Lymphocytes # 2.2 K/mcL (0.6-4.6); Lymphocytes % 21.5 %; Mean Corpuscular HGB Conc 33.8 g/dL (31.6-35.5); Mean Corpuscular Hemoglobin 31.2 pg (28.0-33.3); Mean Corpuscular Volume 92.3 fL (83.0-100.0); Mean Platelet Volume 9.5 fL (9.4-12.4); Monocytes # 1.3 K/mcL (0.0-1.3); Monocytes % 12.5 %; Neutrophils # 6.2 K/mcL (1.6-8.9); Platelet Count 217 K/mcL (140-400); Red Blood Count 5.99 M/mcL (4.19-5.50); Segmented Neutrophils % 62.6 %
[2020-11-20 12:33] LABS: BUN/Creatinine Ratio 21 (6-26); Blood Urea Nitrogen 18 mg/dL (6-20); Calcium 9.9 mg/dL (8.6-10.3); Carbon Dioxide 25 mEq/L (23-29); Chloride 103 mEq/L (98-107); Glucose 194 mg/dL (70-105); Osmolality,Calculated 287 (280-300); Potassium 3.9 mEq/L (3.5-5.1); Sodium 135 mEq/L (136-145); eGFR For African Americans > 60 (> 60); eGFR For Non-African Americans > 60 (> 60)
== END 2020-11-20 14:17 | disposition home or self-care (01) | DRG 247 ==
LOC: EMEROOARM 18:15 → ICNU 19:34 → 2NENU 11-19 15:49
PROVIDERS: ADMIT Internal Medicine Interventional Cardiology; ATTEND Internal Medicine Interventional Cardiology

== ENCOUNTER 2020-12-08 12:20 | Inpatient (IN) ==
[2020-12-08] MEDS ORDERED: Aspirin 81 MG TAB.CHEW PO ONE (12:36)
[2020-12-08 12:54] LABS: Basophils # 0.1 K/mcL (0.0-0.2); Eosinophils # 0.2 K/mcL (0.0-0.6); Eosinophils % 1.7 %; Hematocrit 47.6 % (37.5-50.1); Hemoglobin 16.4 g/dL (12.9-16.9); Immature Granulocytes % 1.3 % (0-4); Lymphocytes # 2.6 K/mcL (0.6-4.6); Lymphocytes % 30.3 %; Mean Corpuscular HGB Conc 34.5 g/dL (31.6-35.5); Mean Corpuscular Hemoglobin 31.8 pg (28.0-33.3); Mean Corpuscular Volume 92.2 fL (83.0-100.0); Mean Platelet Volume 9.4 fL (9.4-12.4); Monocytes # 1.1 K/mcL (0.0-1.3); Monocytes % 12.9 %; Neutrophils # 4.6 K/mcL (1.6-8.9); Platelet Count 289 K/mcL (140-400); Red Blood Count 5.16 M/mcL (4.19-5.50); Red Cell Distribution Width 12.3 % (11.5-14.5); Segmented Neutrophils % 52.8 %; White Blood Count 8.7 K/mcL (4.3-11.1)
[2020-12-08 13:01] LABS: INR 1.1; Prothrombin Time 12.7 Seconds (9.4-12.1)
[2020-12-08 13:03] LABS: Activated Partial Thrombo Time 30.5 Seconds (26.0-36.0)
[2020-12-08 13:15] LABS: BUN/Creatinine Ratio 21 (6-26); Blood Urea Nitrogen 16 mg/dL (6-20); Carbon Dioxide 23 mEq/L (23-29); Chloride 107 mEq/L (98-107); Glucose 163 mg/dL (70-105); Osmolality,Calculated 291 (280-300); Potassium 3.9 mEq/L (3.5-5.1); Sodium 138 mEq/L (136-145); Troponin I < 0.03 ng/mL (< 0.04); eGFR For African Americans > 60 (> 60); eGFR For Non-African Americans > 60 (> 60)
[2020-12-08] MEDS ORDERED: Morphine Sulfate 2 MG/ML SYRINGE IVP STA (13:16)
[2020-12-08] MEDS ORDERED: Nitroglycerin 0.4 MG TAB.SUBL SL PRN (13:16)
[2020-12-08] MEDS ORDERED: Naloxone 0.4 MG/ML INJ IVP PRN ×2 (14:19)
[2020-12-08] MEDS ORDERED: Dextrose Gel 15 GM/37.5 ML TUBE PO PRN ×2 (14:56)
[2020-12-08] MEDS ORDERED: *HR* Dextrose 50 % in Water (Vial) 50 ML VIAL IVP PRN (14:56)
[2020-12-08] MEDS ORDERED: D5% in Water 1,000 ML IVC PRN (14:56)
[2020-12-08] MEDS: Insulin LISPRO 300 UNITS/3 ML VIAL SUBQ SCH ×2 (16:38→21:45)
[2020-12-08 17:13] LABS: Estimated Average Glucose 163 mg/dl; Hemoglobin A1C 7.3 %
[2020-12-08] MEDS: *HR* Heparin 5,000 UNIT/ML VIAL SQ SCH (17:50)
[2020-12-08] MEDS: Morphine Sulfate 2 MG/ML SYRINGE IVP PRN ×2 (17:50→22:00)
[2020-12-08] MEDS: *HR* Ticagrelor 90 MG TABLET PO SCH (22:00)
[2020-12-09 02:34] LABS: Chol/HDL Ratio 3.3 (0-4.9)
[2020-12-09] MEDS: *HR* Heparin 5,000 UNIT/ML VIAL SQ SCH ×2 (05:14→16:33)
[2020-12-09] MEDS: Morphine Sulfate 2 MG/ML SYRINGE IVP PRN ×2 (05:14→18:45)
[2020-12-09] MEDS: Insulin LISPRO 300 UNITS/3 ML VIAL SUBQ SCH ×4 (08:41→20:34)
[2020-12-09] MEDS ORDERED: Regadenoson 0.4 MG/5 ML SYRINGE IVP ONE (09:23)
[2020-12-09] MEDS: *HR* Ticagrelor 90 MG TABLET PO SCH ×2 (12:44→20:35)
[2020-12-09] MEDS: lisinopriL 20 MG TABLET PO SCH (12:44)
[2020-12-09] MEDS: amLODIPine 5 MG TABLET PO SCH (12:45)
[2020-12-09] MEDS: Aspirin 81 MG TAB.CHEW PO SCH (12:45)
[2020-12-09] MEDS: Isosorbide MONOnitrate (24 HR) 30 MG TAB.ER.24H PO SCH (13:25)
[2020-12-09] MEDS ORDERED: *HR* LORazepam 2 MG/ML VIAL IVP ONE (16:17)
[2020-12-09] MEDS ORDERED: Acetaminophen 325 MG TABLET PO ONE (21:17)
[2020-12-10] MEDS: *HR* Heparin 5,000 UNIT/ML VIAL SQ SCH ×2 (05:12→16:59)
[2020-12-10] MEDS: Insulin LISPRO 300 UNITS/3 ML VIAL SUBQ SCH ×4 (08:02→20:02)
[2020-12-10] MEDS: Aspirin 81 MG TAB.CHEW PO SCH (08:45)
[2020-12-10] MEDS: Isosorbide MONOnitrate (24 HR) 30 MG TAB.ER.24H PO SCH (08:46)
[2020-12-10] MEDS: lisinopriL 20 MG TABLET PO SCH (08:46)
[2020-12-10] MEDS: *HR* Ticagrelor 90 MG TABLET PO SCH ×2 (08:46→20:03)
[2020-12-10] MEDS: amLODIPine 5 MG TABLET PO SCH (08:46)
[2020-12-10] MEDS: Morphine Sulfate 2 MG/ML SYRINGE IVP PRN (09:05)
[2020-12-10] MEDS ORDERED: Heparin 1,000 UNITS/500 mL 500 ML ONE (10:22)
[2020-12-10] MEDS ORDERED: *HR* Heparin 10,000 UNIT/10 ML VIAL ONE (10:22)
[2020-12-10] MEDS ORDERED: ISOVUE-370 200 ML INFUS..BTL ONE ×2 (10:22→11:29)
[2020-12-10] MEDS ORDERED: 0.9 % Sodium Chloride 2,000 ML ONE (10:23)
[2020-12-10] MEDS ORDERED: Nitroglycerin 1,000 MCG/5 ML VIAL IV ONE (10:23)
[2020-12-10] MEDS ORDERED: *HR* FentaNYL (PF) 100 MCG/2 ML VIAL ONE ×2 (10:31→11:26)
[2020-12-10] MEDS ORDERED: *HR* Midazolam HCl 2 MG/2 ML VIAL ONE (10:31)
[2020-12-10] MEDS ORDERED: Tirofiban 12.5 MG/250ML 12.5 MG/250 ML BAG ONE (11:16)
[2020-12-10] MEDS ORDERED: Tirofiban 12.5 MG/250ML 12.5 MG/250 ML BAG IVC SCH (11:45)
[2020-12-11] MEDS: *HR* Heparin 5,000 UNIT/ML VIAL SQ SCH (04:54)
[2020-12-11 07:24] VITALS: BP 151/81; PULSE 88; TEMP 97.9; O2SAT 97
[2020-12-11] MEDS: Insulin LISPRO 300 UNITS/3 ML VIAL SUBQ SCH (08:21)
[2020-12-11] MEDS: Aspirin 81 MG TAB.CHEW PO SCH (08:21)
[2020-12-11] MEDS: Isosorbide MONOnitrate (24 HR) 30 MG TAB.ER.24H PO SCH (08:22)
[2020-12-11] MEDS: amLODIPine 5 MG TABLET PO SCH (08:22)
[2020-12-11] MEDS: *HR* Ticagrelor 90 MG TABLET PO SCH (08:22)
[2020-12-11] MEDS: lisinopriL 20 MG TABLET PO SCH (08:22)
[2020-12-11 08:52] LABS: Basophils # 0.1 K/mcL (0.0-0.2); Basophils % 1.1 %; Eosinophils # 0.1 K/mcL (0.0-0.6); Eosinophils % 1.6 %; Hematocrit 47.9 % (37.5-50.1); Hemoglobin 16.6 g/dL (12.9-16.9); Immature Granulocytes % 1.1 % (0-4); Lymphocytes # 2.2 K/mcL (0.6-4.6); Lymphocytes % 27.1 %; Mean Corpuscular HGB Conc 34.7 g/dL (31.6-35.5); Mean Corpuscular Hemoglobin 31.8 pg (28.0-33.3); Mean Corpuscular Volume 91.8 fL (83.0-100.0); Mean Platelet Volume 9.5 fL (9.4-12.4); Monocytes # 0.9 K/mcL (0.0-1.3); Neutrophils # 4.8 K/mcL (1.6-8.9); Platelet Count 254 K/mcL (140-400); Red Blood Count 5.22 M/mcL (4.19-5.50); Red Cell Distribution Width 12.1 % (11.5-14.5); Segmented Neutrophils % 58.1 %; White Blood Count 8.3 K/mcL (4.3-11.1)
[2020-12-11 09:12] LABS: BUN/Creatinine Ratio 14 (6-26); Blood Urea Nitrogen 9 mg/dL (6-20); Calcium 9.2 mg/dL (8.6-10.3); Carbon Dioxide 24 mEq/L (23-29); Chloride 105 mEq/L (98-107); Glucose 273 mg/dL (70-105); Osmolality,Calculated 290 (280-300); Potassium 3.9 mEq/L (3.5-5.1); Sodium 136 mEq/L (136-145); eGFR For African Americans > 60 (> 60); eGFR For Non-African Americans > 60 (> 60)
== END 2020-12-11 10:03 | disposition home or self-care (01) | DRG 246 ==
LOC: 3BNU 12:20 → EMEROOARM 12:20 → SUATTDRO 14:12 → 3BNU 15:00
PROVIDERS: ADMIT Internal Medicine; ATTEND Internal Medicine